=== PATIENT | female | born 1995 | race Caucasian/White ===

== ENCOUNTER → 2020-08-12 | Outpatient (CLI) | payer OTHER ==
[~2020-08-12] MED LIST: ALBU90OI INH; AMOCLA500 PO; AMOX250 PO; BCP; CEPH500 PO; CIPR500; CITA20 PO; CLIN300 PO; CODBUTACEC PO; CRUTCH3 USE; CRUTCH4 USE; HYDACE10B PO; HYDACE5 PO; HYDR1TAB94; IBUP800 PO; MULVITMINE PO; NAPR500 PO; OXYACE5T PO; PHENA100 PO; PROM25 PO; RXHYD5325 PO; RXHYDACE PO; RXONDA4ODT MM; SULTRIDS; SULTRIDS PO; SULTRISS PO; Verotin-Gr Cap1 EACH PO; [UNRECOGNIZED DRUG - OTHER]
[2020-08-14 05:10] LABS: CHLAMYDIA TRACHOMATIS, NAA Negative (Negative); NEISSERIA GONORRHOEAE, NAA Negative (Negative)
== END | disposition home or self-care (01) ==
LOC: LAB SHORT 17:36 → LAB 17:36
PROVIDERS: Obstetrics & Gynecology
DX: Z11.3 Encounter for screening for infections with a predominantly sexual mode of transmission (principal)
CPT/HCPCS: 87491; 87591

== ENCOUNTER 2023-10-05 08:32 | Day surgery (SDC) | payer OTHER ==
[~2023-10-05] VITALS: Ht 172.7 cm; Wt 122.4 kg
[2023-10-05] MEDS ORDERED: HYDROCODONE-AC1 EA19 PO (09:09)
[2023-10-05] MEDS ORDERED: OMEP20ER PO (09:09)
[2023-10-05] MEDS ORDERED: ZOLOFT10013 PO (09:09)
--- NOTE | 2023-10-05 09:21 | NUR ---
10/05/23 0921 Ying Kirkland PT COMFORTABLE IN BED. CALL LIGHT WITHIN REACH. PT HAS PERSONAL PHONE. NO QUESTIONS OR CONCERNS
--- NOTE | 2023-10-05 11:30 | NUR ---
10/05/23 1130 Cindy Ware PT LATERAL RIGHT IN BED ON ADRIAN BAG, DOUBLE SEATBELTS IN PLACE TO SECURE. STAFF SHIFTED PT FROM LATERAL RIGHT POSITION TO SUPINE ORDERED BY DR. GREEN. PT IN SUPINE POSITION BILATERAL ARMBOARDS WITH SEATBELT AND WRIST STRAPS IN PLACE.
--- NOTE | 2023-10-05 12:41 | NUR ---
10/05/23 1241 NEIL GARCIA PT O2 DIPPING TO LOW 90'S WHEN FALLS TO SLEEP. EASILY COMES BACK UP WHEN ENCOURAGED TO TAKE A DEEP BREATH.
[2023-10-05 13:05] VITALS: BP 128/84
== END 2023-10-05 13:40 | disposition home or self-care (01) ==
LOC: ORSCSDS 08:32
PROVIDERS: Podiatrist Foot & Ankle Surgery
PROC: 0QSH04Z Reposition Left Tibia with Internal Fixation Device, Open Approach (ICD-10-PCS; principal; 2023-10-05 10:00)
DX: S82.852A Displaced trimalleolar fracture of left lower leg, initial encounter for closed fracture (principal); J45.909 Unspecified asthma, uncomplicated; K21.9 Gastro-esophageal reflux disease without esophagitis; Z87.891 Personal history of nicotine dependence; E66.9 Obesity, unspecified; Z68.41 Body mass index [BMI] 40.0-44.9, adult; W18.31XA Fall on same level due to stepping on an object, initial encounter; Z79.899 Other long term (current) drug therapy
CPT/HCPCS: A9270; C1713; C1769; J0171; J0690; J1100; J1170; J2001; J2250; J2405; J2704; J2795; J3010

== ENCOUNTER → 2023-11-12 | Outpatient (CLI) | payer OTHER ==
[~2023-11-12] MED LIST changes: +HYDROCODONE-AC1 EA19 PO; +OMEP20ER PO; +ZOLOFT10013 PO
[2023-11-12 19:57] LABS: Adenovirus F 40/41 Not Detected (NOT DETECT); Astrovirus Not Detected (NOT DETECT); Campylobacter Sp Not Detected (NOT DETECT); Cryptosporidium Not Detected (NOT DETECT); Cyclospora Cayetanensis Not Detected (NOT DETECT); E. Coli O157 Not Detected (NOT DETECT); Entamoeba Histolytica Not Detected (NOT DETECT); Enteroaggregative E. coli-EAEC Not Detected (NOT DETECT); Enteropathogenic E. coli-EPEC Not Detected (NOT DETECT); Enterotoxigenic E. coli-ETEC Not Detected (NOT DETECT); Giardia Lamblia Not Detected (NOT DETECT); Norovirus GI/GII Not Detected (NOT DETECT); Plesiomonas Shigelloides Not Detected (NOT DETECT); Rotavirus A Not Detected (NOT DETECT); Salmonella Sp Not Detected (NOT DETECT); Sapovirus Not Detected (NOT DETECT); Shiga Toxin-prod E. coli-STEC Not Detected (NOT DETECT); Shigella/Enteroin E. coli-EIEC Not Detected (NOT DETECT); Vibrio Cholerae Not Detected (NOT DETECT); Vibrio Sp Not Detected (NOT DETECT); Yersinia Enterocolitica Not Detected (NOT DETECT)
== END ==
LOC: LAB SHORT 15:49 → LAB 15:49
PROVIDERS: Family Medicine
DX: R19.7 Diarrhea, unspecified (principal)
CPT/HCPCS: 87507

== ENCOUNTER → 2024-12-14 | Outpatient (CLI) | payer OTHER ==
[2024-12-14 19:12] LABS: Chlamydia Trachomatis Urine NOT DETECTED (NOT DETECT); Neisseria Gonorrhoea Urine NOT DETECTED (NOT DETECT)
== END | disposition home or self-care (01) ==
LOC: LAB SHORT 16:00 → LAB 16:00
PROVIDERS: Physician Assistant Medical
DX: R30.0 Dysuria (principal)
CPT/HCPCS: 87086; 87491; 87591